=== PATIENT | female | born 1995 | race African-American/Black ===

== ENCOUNTER 2024-01-25 21:32 | Emergency (ER) | payer MEDICAID ==
[~2024-01-25] VITALS: Ht 158.8 cm; Wt 55.9 kg
[2024-01-25 21:35] VITALS: PULSE 86; O2SAT 100
[2024-01-25 22:02] VITALS: BP 119/46; RESP 18; TEMP 98.5; O2SAT 100
[2024-01-25] MEDS ORDERED: LIDOCAINE HCL/PF 1% 10 MG/ML 5ML VIAL INFIL ONE (22:30)
[2024-01-25] MEDS ORDERED: BACITRACIN ZINC OINT UDPKT TOP ONE (22:30)
[2024-01-25] MEDS ORDERED: CEPH500T MT (23:02)
[2024-01-25] MEDS ORDERED: SULF1TAB48 MT (23:02)
[2024-01-26] MEDS: LIDOCAINE HCL/PF 1% 10 MG/ML 5ML VIAL INFIL NR (00:01)
[2024-01-26] MEDS: BACITRACIN ZINC OINT UDPKT TOP NR (00:01)
== END 2024-01-26 00:08 | disposition home or self-care (01) ==
LOC: ER 21:32
DX: L02.91 Cutaneous abscess, unspecified (principal); J45.909 Unspecified asthma, uncomplicated
CPT/HCPCS: 99283; Z7610 ×2

== ENCOUNTER 2024-02-01 15:43 | Emergency (ER) | payer MEDICAID ==
[~2024-02-01] VITALS: Ht 157.5 cm; Wt 56.0 kg
[~2024-02-01 15:43] MED LIST: CEPH500T MT; SULF1TAB48 MT
[2024-02-01 15:45] VITALS: O2SAT 100
[2024-02-01 15:49] VITALS: BP 104/70; PULSE 98; RESP 16; TEMP 98.5; O2SAT 100
[2024-02-01] MEDS ORDERED: DIPH25CA83 MT (17:03)
[2024-02-01] MEDS ORDERED: P50 MT (17:03)
[2024-02-01] MEDS: DIPHENHYDRAMINE 25MG CAPSULE PO ONE (17:06)
[2024-02-01] MEDS: PREDNISONE 20MG TABLET PO ONE (17:06)
== END 2024-02-01 17:35 | disposition home or self-care (01) ==
LOC: ER 15:43
DX: R21 Rash and other nonspecific skin eruption (principal); J45.909 Unspecified asthma, uncomplicated
CPT/HCPCS: 99283; Q0163; J7512

== ENCOUNTER 2024-05-03 04:00 | Emergency (ER) | payer MEDICAID ==
[~2024-05-03] VITALS: Ht 157.5 cm; Wt 52.0 kg
[~2024-05-03 04:00] MED LIST changes: -CEPH500T MT; +ESCI-7 MT; -SULF1TAB48 MT
[2024-05-03 04:21] VITALS: O2SAT 100
[2024-05-03] MEDS: ONDANSETRON 4MG ODT PO ONE (06:16)
[2024-05-03] MEDS ORDERED: ONDA4TAB50 MT (10:00)
[2024-05-03 10:06] VITALS: BP 121/68; PULSE 90; RESP 20; TEMP 36.9; O2SAT 100
== END 2024-05-03 10:08 | disposition home or self-care (01) ==
LOC: ER 04:00
DX: B34.9 Viral infection, unspecified (principal); J45.909 Unspecified asthma, uncomplicated; Z79.899 Other long term (current) drug therapy
CPT/HCPCS: 99283; 81025; 87430; 87070; Q0162